=== PATIENT | male | born 1955 | race Caucasian/White ===

== ENCOUNTER → 2016-04-22 | Outpatient (REF) | payer OTHER ==
[~2016-04-22] MED LIST: /LABE20TA OR; ALLO300T OR; CATA0.2D3 TD; CRES40TA OR; FURO40TA2 OR; GLIP2.5T6 OR; METF500T4 OR; MINOXIDIL PO; SPIR50TA2 OR; TRIC145T19 OR; prednisone PO
[2016-04-22 14:08] LABS: CHOLESTEROL LEVEL 241 MG/DL (<200); TRIGLYCERIDES LEVEL 514 MG/DL (<150)
== END | disposition home or self-care (01) ==
LOC: M LAB REF 13:17
PROVIDERS: ATTEND Internal Medicine Nephrology
DX: E78.2 Mixed hyperlipidemia (principal); Z94.0 Kidney transplant status

== ENCOUNTER → 2016-04-22 | Outpatient (REF) | payer OTHER ==
[2016-04-22 14:03] LABS: CHOLESTEROL LEVEL 227 MG/DL (<200); TRIGLYCERIDES LEVEL 506 MG/DL (<150)
[2016-04-24 00:09] LABS: TISSUE TRANSGLUTAMINASE IgG <2 U/mL (0-5)
== END | disposition home or self-care (01) ==
LOC: M LAB REF 12:51
PROVIDERS: ATTEND Family Medicine
DX: E78.4 Other hyperlipidemia (principal); R14.0 Abdominal distension (gaseous); Z94.0 Kidney transplant status

== ENCOUNTER → 2016-07-31 | Outpatient (REF) | payer OTHER ==
[~2016-07-31] MED LIST changes: +ALLO15TA PO; +AMIL5TA PO; +CRES40TA PO; +FOLI5INJ2 PO; +GLIM2TAB PO; +LOSA100T36 PO; +METO200T15 PO; +MYFO180T PO; +POTA50TAB PO; +PRED5CON PO; +PROG1CAP2 PO; +ROCA0.5C PO; +TORS5TAB2 PO; +VITA100054 PO; +[UNRECOGNIZED DRUG - OTHER] PO; +[UNRECOGNIZED DRUG - OTHER] PO
[2016-07-31 13:53] LABS: CHOLESTEROL LEVEL 240 MG/DL (<200); TRIGLYCERIDES LEVEL 651 MG/DL (<150)
== END ==
LOC: M LAB REF 12:57
PROVIDERS: ATTEND Internal Medicine Nephrology
DX: Z94.0 Kidney transplant status (principal); E78.2 Mixed hyperlipidemia

== ENCOUNTER → 2016-08-04 | Outpatient (CLI) | payer OTHER ==
[~2016-08-04] VITALS: Ht 170.2 cm; Wt 95.3 kg
[~2016-08-04] MED LIST changes: +LIDOCAINE 2% INJ 100 MG/5 ML SDV (FOR ANES.) As Ordered ONE; +MIDAZOLAM INJ 2 MG/2 ML VIAL (J2250) As Ordered ONE; +NS 1,000 ML IV SCH; +PROPOFOL 200 MG/20 ML VIAL As Ordered ONE
--- NOTE | 2016-08-04 07:58 | ROOR ---
Patient Name: Donovan Morris Procedure Date: 08/04/2016 7:32 AM Date of : 1955 Age: 61 Room: [facility] Gender: Male Note Status: Finalized Procedure: Upper GI endoscopy Indications: Nausea with vomiting Providers: Jake Herr MD Referring MD: Patsy MILLER DO, Khalid P. Sindhu, MD Requesting Provider: Medicines: Monitored Anesthesia Care Complications: No immediate complications. Procedure: Pre-Anesthesia Assessment: - Prior to the procedure, a History and Physical was performed, and patient medications and allergies were reviewed. The patient is competent. The risks and benefits of the procedure and the sedation options and risks were discussed with the patient. All questions were answered and informed consent was obtained. Patient identification and proposed procedure were verified by the physician, the nurse and the anesthesiologist in the procedure room. Mental Status Examination: alert and oriented. Airway Examination: normal oropharyngeal airway and neck mobility. CV Examination: regular rate and rhythm. Prophylactic Antibiotics: The patient does not require prophylactic antibiotics. Prior Anticoagulants: The patient has taken no previous anticoagulant or antiplatelet agents. ASA Grade Assessment: III - A patient with severe systemic disease. After reviewing the risks and benefits, the patient was deemed in satisfactory condition to undergo the procedure. The anesthesia plan was to use monitored anesthesia care (MAC). Immediately prior to administration of medications, the patient was re-assessed for adequacy to receive sedatives. The heart rate, respiratory rate, oxygen saturations, blood pressure, adequacy of pulmonary ventilation, and response to care were monitored throughout the procedure. The physical status of the patient was re-assessed after the procedure. The Endoscope was introduced through the mouth, and advanced to the second part of duodenum. The upper GI endoscopy was accomplished without difficulty. The patient tolerated the procedure well. Findings: The examined esophagus was normal. Scattered and patchy moderate inflammation characterized by erosions and erythema was found in the gastric antrum. Biopsies were taken with a cold forceps for histology. The examined duodenum was normal. Impression: - Normal esophagus. - Acute gastritis. Biopsied. - Normal examined duodenum. Recommendation: - Await pathology results. - Resume previous diet. - Continue present medications. Jake Herr MD 08/04/2016 7:57:33 AM Number of Addenda: 0 Note Initiated On: 08/04/2016 7:32 AM Estimated Blood Loss: Estimated blood loss was minimal.
[2016-08-04 08:15] VITALS: BP 108/69
== END | disposition home or self-care (01) ==
LOC: M OPP 06:21
PROVIDERS: ATTEND Surgery
DX: R11.2 Nausea with vomiting, unspecified (principal); K29.70 Gastritis, unspecified, without bleeding; R00.8 Other abnormalities of heart beat; R01.1 Cardiac murmur, unspecified; I10 Essential (primary) hypertension; E78.5 Hyperlipidemia, unspecified; E11.9 Type 2 diabetes mellitus without complications; M10.9 Gout, unspecified; R19.7 Diarrhea, unspecified; R10.9 Unspecified abdominal pain; R06.02 Shortness of breath; G47.30 Sleep apnea, unspecified; E66.9 Obesity, unspecified; Z94.0 Kidney transplant status; Z88.8 Allergy status to other drugs, medicaments and biological substances; Z79.84 Long term (current) use of oral hypoglycemic drugs; Z79.52 Long term (current) use of systemic steroids; Z79.899 Other long term (current) drug therapy; Z80.41 Family history of malignant neoplasm of ovary
CPT/HCPCS: 43239; 88305; J2250

== ENCOUNTER → 2016-11-03 | Outpatient (REF) | payer OTHER ==
[~2016-11-03] MED LIST changes: +FENO1CAP2 PO; -LIDOCAINE 2% INJ 100 MG/5 ML SDV (FOR ANES.) As Ordered ONE; +METO-398 PO; -METO200T15 PO; -MIDAZOLAM INJ 2 MG/2 ML VIAL (J2250) As Ordered ONE; +MINO2.5T PO; -NS 1,000 ML IV SCH; +OMEP20TA PO; -PROPOFOL 200 MG/20 ML VIAL As Ordered ONE
== END ==
LOC: M LAB REF 13:09
PROVIDERS: ATTEND Internal Medicine Nephrology
DX: Z94.0 Kidney transplant status (principal); E78.2 Mixed hyperlipidemia

== ENCOUNTER 2017-01-26 09:07 | Day surgery (SDC) | payer OTHER ==
[~2017-01-26] VITALS: Ht 170.2 cm; Wt 94.8 kg
[~2017-01-26 09:07] MED LIST changes: +LR 1,000 ML IV ONE
[2017-01-26 10:24] LABS: CALCIUM LEVEL 9.9 MG/DL (8.8-10.2); CREATININE FOR GFR 2.28 MG/DL (0.70-1.30); GLOMERULAR FILTRATION RATE 31.2 (>49); POTASSIUM SERUM 4.7 MEQ/L (3.5-5.1)
[2017-01-26] MEDS ORDERED: BUPIVACAINE HCL 0.25% 30 ML VIAL As Ordered ONE (12:35)
[2017-01-26] MEDS ORDERED: BUPIVACAINE LIPOSOME/PF 1.3% 20 ML VIAL (13.3MG/ML)(EXPAREL) As Ordered ONE (12:40)
[2017-01-26] MEDS ORDERED: MIDAZOLAM INJ 2 MG/2 ML VIAL (J2250) As Ordered ONE (12:54)
[2017-01-26] MEDS ORDERED: fentaNYL 250 MCG/5 ML INJECTION (J3010) As Ordered ONE (12:54)
[2017-01-26] MEDS ORDERED: LIDOCAINE 2% INJ 100 MG/5 ML SDV (FOR ANES.) As Ordered ONE (13:10)
[2017-01-26] MEDS ORDERED: PROPOFOL 200 MG/20 ML VIAL As Ordered ONE ×2 (13:10→14:46)
[2017-01-26] MEDS ORDERED: ROCURONIUM BROMIDE 50 MG/5 ML VIAL/SYRINGE As Ordered ONE (13:10)
[2017-01-26] MEDS ORDERED: NEOSTIGMINE 10 MG/10 ML VIAL (J2710) As Ordered ONE ×2 (13:10→13:11)
[2017-01-26] MEDS ORDERED: METOCLOPRAMIDE INJ 10MG/2ML VIAL (J2765) As Ordered ONE (13:11)
[2017-01-26] MEDS ORDERED: GLYCOPYRROLATE INJ 0.2 MG/ML 2 ML VIAL As Ordered ONE (13:11)
[2017-01-26] MEDS ORDERED: ONDANSETRON 4MG/2ML VIAL (J2405) As Ordered ONE (13:11)
[2017-01-26] MEDS ORDERED: fentaNYL 100 MCG/2 ML INJECTION (J3010) As Ordered ONE (13:54)
[2017-01-26] MEDS ORDERED: LR 1,000 ML IV SCH (15:15)
[2017-01-26] MEDS ORDERED: NORCO, ANEXSIA 5/325MG TABLET (HYDROcodone/ACETAMINOPHEN) PO PRN (15:15)
[2017-01-26] MEDS ORDERED: ONDANSETRON 4MG/2ML VIAL (J2405) IV PRN (15:15)
[2017-01-26] MEDS ORDERED: fentaNYL 100 MCG/2 ML INJECTION (J3010) IV PRN (15:15)
[2017-01-26] MEDS: MORPHINE 2 MG/ML 1ML SYRINGE IV PRN ×2 (15:37→15:43)
[2017-01-26 17:40] VITALS: BP 138/88
--- NOTE | 2017-01-28 09:27 | RO ---
DATE OF PROCEDURE: 01/26/2017 PREOPERATIVE DIAGNOSIS: Umbilical hernia. POSTOPERATIVE DIAGNOSIS: Umbilical hernia. PROCEDURE PERFORMED: Laparoscopic repair of umbilical hernia with Parietex mesh. SURGEON: Jake Herr MD HEAD OF RESEARCH & INSIGHTS: ANESTHESIA: General. INDICATIONS FOR PROCEDURE: Patient is a 61-year-old man who developed a small umbilical hernia. This has perhaps increased slightly in size and he has some discomfort at times. He is now for a laparoscopic repair of his umbilical hernia. OPERATIVE PROCEDURE: The patient was placed under general endotracheal anesthesia. The patient's abdomen was prepped and draped in a sterile fashion. Because of a previous right lower quadrant incision for a renal transplant, the surgical approach was from the left. Local anesthesia was achieved at the level of the umbilicus laterally with 0.25% Marcaine. A small incision was made a Veress needle was inserted. After a positive hanging drop test, the abdomen was insufflated with carbon dioxide gas. A 5 mm port was placed over the 5 mm scope and advanced through the abdominal wall without difficulty. Insufflation continued and inspection occurred using the laparoscope. Examination showed remarkably no adhesions to speak of within the abdomen. A second 5 mm trocar was placed low in the left lower quadrant and a third 5 mm trocar was placed slightly higher up in the left upper quadrant. The patient was noted to have some, somewhat lobulated peritoneum and preperitoneal fat surrounding the umbilicus. Some of which would protrude through the fascial defect. This was grasped and using a Harmonic scalpel this preperitoneal fat and peritoneum was peeled away from the anterior abdominal wall surrounding the umbilicus. This was placed aside in the abdomen for later removal. Inspection identified an approximately 1.5 to perhaps 2 cm fascial defect. The abdomen was deflated and a short transverse supraumbilical incision was made. This was deepened into the subcutaneous tissues. The hernia sac was opened. A 9 cm round Parietex patch was selected. This was reference code [id number] and Lot number [id number]. This was moistened. A suture of Ethibond was placed in the fascial defect catching a small bite of the midpoint of the mesh. Before tying the suture, the mesh was reduced into the abdomen and the suture was then tied down. Several additional sutures were placed to complete closure of the fascial defect. The abdomen was then reinflated. The mass of mesh was then tacked in place using a SecureStrap tacking device. All 25 ashish were utilized and a nice approximation to the anterior abdominal wall was achieved. There was no bleeding identified. Exparel was mixed with 20 mL of Exparel and 10 mL of sterile saline. This was infiltrated through the anterior abdominal wall overlying the area of the mesh implantation guided by inspection with the laparoscope. The umbilical incision was closed with some buried Vicryl sutures and the skin edges were approximated with a running subcuticular Vicryl. The trocars were removed after deflating the abdomen, and I proceeded to close the skin incisions. Prior to completing the operation, I realized that I had failed to remove the devascularized portion of fat that had been removed off the anterior abdominal wall. A 5 mm trocar was then placed through the left upper quadrant trocar site and a reinflation of the abdomen took place. The portion of fatty tissue was tissue was readily identified. A 5 mm trocar was placed through the middle port. The fat was grasped, but it was too bulky to remove through the 5 mm port. Therefore, a 10 mm port was inserted. An Endopouch was placed and used to scoop up. The 10 mm port was removed and mouth of the sac was delivered through the incision. A Juanita clamp was used to reach within the pouch and remove the fibrofatty tissue and fragments, and the pouch was then removed. An Endoclose device was placed and the peritoneum and inner fascia were approximated with a single suture of #0 Vicryl. Once this had been placed, the abdomen was deflated through the single remaining port and this was removed. The trocar site incisions were then closed with buried Vicryl and Steri-Strips were applied to all incisions. The patient tolerated the procedure well without apparent complication. He was awakened and extubated and moved to the recovery room in stable condition.
== END 2017-01-26 17:40 | disposition home or self-care (01) ==
LOC: M SDC 09:07
PROVIDERS: ATTEND Surgery
DX: K42.9 Umbilical hernia without obstruction or gangrene (principal); I10 Essential (primary) hypertension; E11.9 Type 2 diabetes mellitus without complications; E66.9 Obesity, unspecified; E78.00 Pure hypercholesterolemia, unspecified; R11.0 Nausea; R06.83 Snoring; T88.4XXD Failed or difficult intubation, subsequent encounter; E55.9 Vitamin D deficiency, unspecified; Z88.8 Allergy status to other drugs, medicaments and biological substances; Z79.899 Other long term (current) drug therapy; Z79.52 Long term (current) use of systemic steroids; Z94.0 Kidney transplant status
CPT/HCPCS: 36415; 49652; 80048; C1781; J2250; J2405; J2710; J2765; J3010

== ENCOUNTER → 2017-02-16 | Outpatient (REF) | payer OTHER ==
[~2017-02-16] MED LIST changes: -LR 1,000 ML IV ONE
[2017-02-16 16:08] LABS: CHOLESTEROL LEVEL 227 MG/DL (<200); TRIGLYCERIDES LEVEL 508 MG/DL (<150)
== END ==
LOC: M LAB REF 13:55
PROVIDERS: ATTEND Internal Medicine Nephrology
DX: Z94.0 Kidney transplant status (principal); E78.2 Mixed hyperlipidemia

== ENCOUNTER → 2017-05-31 | Outpatient (REF) | payer OTHER ==
[2017-05-31 14:39] LABS: CHOLESTEROL LEVEL 170 MG/DL (<200); CHOLESTEROL RISK RATIO 4.722 (<5); HDL CHOLESTEROL 36 MG/DL (>40); LDL CHOLESTEROL 60.8 MG/DL (<100); NON-HDL-C 134 MG/DL; TRIGLYCERIDES LEVEL 366 MG/DL (<150)
[2017-06-02 08:40] LABS: FK 506 (TACROLIMUS) LABCORP 9.2 ng/mL (2.0-20.0)
== END ==
LOC: M LAB REF 13:26
DX: Z94.0 Kidney transplant status (principal); E78.2 Mixed hyperlipidemia
CPT/HCPCS: 80061

== ENCOUNTER → 2017-07-02 | Outpatient (CLI) | payer OTHER ==
[2017-07-02 19:00] LABS: URIC ACID 5.8 MG/DL (3.5-7.2)
[2017-07-02 19:00] LABS: RHEUMATOID FACTOR QUANT < 10.0 IU/ML (<15.0)
[2017-07-02 19:29] LABS: ERYTHROCYTE SEDIMENTATION RATE 6 mm/hr (0-20)
[2017-07-02 19:30] LABS: TOTAL 25(OH) VITAMIN D 77.2 NG/ML (30.0-100.0)
[2017-07-06 00:08] LABS: CYCLIC CITRULLINATED PEPTIDE 4 units (0-19)
[2017-07-06 00:08] LABS: ANTINUCLEAR ANTIBODIES DIRECT Negative (Negative); Lyme Disease IgG/IgM Antibodie <0.91 ISR (0.00-0.90); Lyme Disease IgM Ab Quantitati <0.80 index (0.00-0.79)
== END ==
LOC: M SMT 14:11
DX: M79.671 Pain in right foot (principal); M25.532 Pain in left wrist; M25.531 Pain in right wrist

== ENCOUNTER → 2017-07-06 | Outpatient (CLI) | payer OTHER ==
[2017-07-06 19:05] LABS: FREE T4 0.96 NG/DL (0.76-1.46)
[2017-07-06 19:05] LABS: THYROID STIMULATING HORMONE 0.932 uIU/ML (0.358-3.740)
[2017-07-06 19:15] LABS: FOLATE > 24.0 NG/ML (>5.4); VITAMIN B12 LEVEL 340 PG/ML (247-911)
== END ==
LOC: M SMT 14:51
DX: R20.2 Paresthesia of skin (principal); R41.3 Other amnesia; Z11.3 Encounter for screening for infections with a predominantly sexual mode of transmission
CPT/HCPCS: 82746

== ENCOUNTER → 2017-09-01 | Outpatient (REF) | payer OTHER ==
[2017-09-04 00:12] LABS: FK 506 (TACROLIMUS) LABCORP 9.2 ng/mL (2.0-20.0)
== END ==
LOC: M LAB REF 12:54
DX: Z94.0 Kidney transplant status (principal)

== ENCOUNTER → 2017-12-08 | Outpatient (REF) | payer OTHER ==
[2017-12-11 00:06] LABS: FK 506 (TACROLIMUS) LABCORP 7.4 ng/mL (2.0-20.0)
== END ==
LOC: M LAB REF 13:17
DX: Z94.0 Kidney transplant status (principal)

== ENCOUNTER → 2018-03-28 | Outpatient (REF) | payer OTHER ==
[~2018-03-28] MED LIST changes: -AMIL5TA PO; +AMIL5TAB4 PO; -LOSA100T36 PO; +LOSA100T50 PO; -METO-398 PO; +METO200T28 PO
[2018-03-28 14:02] LABS: CHOLESTEROL LEVEL 215 MG/DL (<200); CHOLESTEROL RISK RATIO 4.479 (<5); HDL CHOLESTEROL 48 MG/DL (>40); NON-HDL-C 167 MG/DL; TRIGLYCERIDES LEVEL 523 MG/DL (<150)
== END ==
LOC: M LAB REF 13:03
PROVIDERS: ATTEND Internal Medicine Nephrology
DX: E78.2 Mixed hyperlipidemia (principal); Z94.0 Kidney transplant status

== ENCOUNTER → 2018-03-28 | Outpatient (CLI) | payer OTHER ==
[2018-03-30 14:58] LABS: Methylmalonic Acid 186 nmol/L (0-378)
== END ==
LOC: M SMT 10:16
PROVIDERS: ATTEND Psychiatry & Neurology Neurology
DX: E53.8 Deficiency of other specified B group vitamins (principal)

== ENCOUNTER → 2018-07-06 | Outpatient (REF) | payer OTHER ==
[~2018-07-06] MED LIST changes: -/LABE20TA OR; -ALLO15TA PO; +ALLO300T2 PO; +FENO135C6 PO; -FENO1CAP2 PO; +LABE1TAB11 OR
[2018-07-06 15:07] LABS: CHOLESTEROL LEVEL 219 MG/DL (<200); HDL CHOLESTEROL 46 MG/DL (>40); NON-HDL-C 173 MG/DL; TRIGLYCERIDES LEVEL 571 MG/DL (<150)
== END ==
LOC: M LAB REF 13:26
PROVIDERS: ATTEND Internal Medicine Nephrology
DX: E78.2 Mixed hyperlipidemia (principal); Z94.0 Kidney transplant status

== ENCOUNTER → 2018-08-12 | Outpatient (REF) | payer OTHER ==
[2018-08-12 19:11] LABS: CREATININE FOR GFR 2.5 MG/DL (0.70-1.30); GLOMERULAR FILTRATION RATE 27.9 (>49)
== END ==
LOC: M LABDRAW1 16:36
PROVIDERS: ATTEND Physical Medicine & Rehabilitation
DX: E11.9 Type 2 diabetes mellitus without complications (principal)

== ENCOUNTER → 2018-10-06 | Outpatient (REF) | payer OTHER | LOC: M LAB REF 13:16 | PROVIDERS: ATTEND Internal Medicine Nephrology | DX: Z94.0 Kidney transplant status (principal) ==

== ENCOUNTER → 2018-10-14 | Outpatient (CLI) | payer OTHER ==
[~2018-10-14] MED LIST changes: +B-122500 PO; -GLIM2TAB PO; +GLIM2TAB4 PO; +GLIM4TAB5; +GLIM4TAB5 PO; +GLIP2.5T6 PO; +METO100T5 PO; +METO1TAB33 PO; +OMEP-358 PO; -OMEP20TA PO; +ZYLO300T6
[2018-10-14 18:02] LABS: BASO # 0.1 10^3/uL (0.0-0.2); BASO % 0.9 % (0.0-1.0); EOS # 0.1 10^3/uL (0.0-0.50); EOS % 0.7 % (0.0-3.0); HEMATOCRIT 46.1 % (42.0-52.0); HEMOGLOBIN 15.6 g/dl (13.5-17.5); LYMPH # 0.3 10^3/uL (1.5-4.5); MEAN CORPUSCULAR HEMOGLOBIN 29.1 pg (27.0-33.0); MEAN CORPUSCULAR HGB CONC 33.8 g/dl (32.0-36.5); MEAN CORPUSCULAR VOLUME 85.8 fl (80.0-96.0); MONO # 0.5 10^3/uL (0.0-0.8); MONO % 6.1 % (0.0-5.0); NEUTROPHILS # 7.2 10^3/uL (1.8-7.7); NEUTROPHILS % 87.4 % (36.0-66.0); PLATELET COUNT, AUTOMATED 246 10^3/uL (150-450); RED BLOOD COUNT 5.37 10^6/uL (4.30-6.10); WHITE BLOOD COUNT 8.2 10^3/uL (4.0-10.0)
[2018-10-14 18:14] LABS: ALBUMIN 4.2 GM/DL (3.2-5.2); ALT/SGPT 22 U/L (12-78); BILIRUBIN,TOTAL 0.6 MG/DL (0.2-1.0); BLOOD UREA NITROGEN 41 MG/DL (7-18); CALCIUM LEVEL 9.5 MG/DL (8.8-10.2); CARBON DIOXIDE LEVEL 25 MEQ/L (21-32); CHLORIDE LEVEL 98 MEQ/L (98-107); CREATININE FOR GFR 2.32 MG/DL (0.70-1.30); FOLATE > 24.0 NG/ML (>5.4); GLOMERULAR FILTRATION RATE 30.4 (>49); GLUCOSE, FASTING 120 MG/DL (70-100); POTASSIUM SERUM 4.6 MEQ/L (3.5-5.1); RHEUMATOID FACTOR QUANT < 10.0 IU/ML (<15.0); SODIUM LEVEL 132 MEQ/L (136-145); THYROID STIMULATING HORMONE 0.849 uIU/ML (0.358-3.740); TOTAL PROTEIN 7.1 GM/DL (6.4-8.2); VITAMIN B12 LEVEL 1335 PG/ML (247-911)
[2018-10-14 19:10] LABS: ERYTHROCYTE SEDIMENTATION RATE 11 mm/hr (0-20)
[2018-10-14 19:31] LABS: HEMOGLOBIN A1c 7.6 %
[2018-10-18 10:28] LABS: DRVV SCREEN 41.7 SEC
[2018-10-18 14:02] LABS: ALBUMIN % 66.2 % (55.8-66.1); ALPHA-1-GLOBULIN % 5.2 % (2.9-4.9); ALPHA-1-GLOBULINS 0.37 GM/DL (0.17-0.41); ALPHA-2-GLOBULINS 0.81 GM/DL (0.42-0.99); ALPHA-2-GLOBULINS % 11.4 % (7.1-11.8); BETA-1-GLOBULINS % 6.9 % (4.7-7.2); BETA-2-GLOBULINS % 3.9 % (3.2-6.5); GAMMA GLOBULIN % 6.4 % (11.1-18.8)
[2018-10-18 14:03] LABS: BETA-1-GLOBULINS 0.49 GM/DL (0.28-0.60); BETA-2-GLOBULINS 0.28 GM/DL (0.19-0.55); GAMMA GLOBULINS 0.45 GM/DL (0.65-1.58)
[2018-10-20 00:14] LABS: ANCA-ATYPICAL <1:20 titer (Neg:<1:20); ANTI DS-DNA AB <1:10 titer (.); ANTINUCLEAR ANTIBODIES DIRECT Negative (Negative); CERULOPLASMIN 22.3 mg/dL (16.0-31.0); COPPER PLASMA 103 ug/dL (72-166); CYTOPLASMIC NEUTROP AB ANCA-C <1:20 titer (Neg:<1:20); LEAD BLOOD ADULT 1 ug/dL (0-4); Lyme Disease IgG/IgM Antibodie <0.91 ISR (0.00-0.90); Lyme Disease IgM Ab Quantitati <0.80 index (0.00-0.79); MERCURY LEVEL 2.6 ug/L (0.0-14.9); PERINUCLEAR AB ANCA-P <1:20 titer (Neg:<1:20); SJOGREN'S ANTI SS-A <0.2 AI (0.0-0.9); SJOGREN'S ANTI SS-B <0.2 AI (0.0-0.9); VITAMIN B1 LEVEL WHOLE BLOOD 181.6 nmol/L (66.5-200.0); VITAMIN B6,PYRIDOXAL PHOSPHATE 6.2 ug/L (5.3-46.7); VITAMIN E(ALPHA TOCOPHEROL) 20.3 mg/L (9.0-29.0); VITAMIN E(GAMMA TOCOPHEROL) 2.5 mg/L (0.5-4.9)
== END ==
LOC: M SMT 13:30
PROVIDERS: ATTEND Psychiatry & Neurology Neurology
DX: G62.9 Polyneuropathy, unspecified (principal); E11.22 Type 2 diabetes mellitus with diabetic chronic kidney disease; Z12.5 Encounter for screening for malignant neoplasm of prostate

== ENCOUNTER → 2018-10-14 | Outpatient (CLI) | payer OTHER ==
[2018-10-18 14:07] LABS: PSA TOTAL 0.7 ng/mL (0.0-4.0)
== END ==
LOC: M SMT 13:36
PROVIDERS: ATTEND Physician Assistant
DX: E11.22 Type 2 diabetes mellitus with diabetic chronic kidney disease (principal); Z12.5 Encounter for screening for malignant neoplasm of prostate

== ENCOUNTER → 2018-12-22 | Outpatient (CLI) | payer OTHER ==
[~2018-12-22] MED LIST changes: -B-122500 PO; +GLIM2TAB2 PO; -GLIM2TAB4 PO; -GLIM4TAB5; -GLIM4TAB5 PO; -GLIP2.5T6 PO; -METO100T5 PO; -METO1TAB33 PO; -ZYLO300T6
--- NOTE | 2018-12-22 12:19 | REP ---
WHOLE BODY BONE SCAN: Following the intravenous administration of 22 millicuries of technetium 99m MDP, patient's body is imaged in the anterior and posterior projections. Additional oblique and lateral views are obtained. There is scattered arthritic uptake in the lower posterior cervical facets and diffusely in the thoracic spine region. There is mild arthritic uptake at the patellofemoral joints bilaterally as well as the bilateral tarsal regions. There is no compelling scintigraphic evidence of osseous metastases. There is a transplant kidney in the right pelvis. Bladder activity is noted. IMPRESSION: Scattered arthritic uptake in the lower cervical and diffusely throughout the thoracic spine. There is also some mild arthritic uptake at the patellofemoral joints and bilateral tarsal regions. Electronically Signed by Grayson Zelaya MD 12/23/2018 09:20 A
== END ==
LOC: M RAD 07:55
PROVIDERS: ATTEND Physical Medicine & Rehabilitation
DX: M47.22 Other spondylosis with radiculopathy, cervical region (principal); M47.812 Spondylosis without myelopathy or radiculopathy, cervical region
CPT/HCPCS: 78306; A9503

== ENCOUNTER → 2019-01-13 | Outpatient (CLI) | payer OTHER ==
[2019-01-13 08:35] LABS: BASO % 0.6 % (0.0-1.0); EOS # 0.1 10^3/uL (0.0-0.5); EOS % 1.2 % (0.0-3.0); HEMATOCRIT 40.2 % (42.0-52.0); HEMOGLOBIN 13.4 g/dl (13.5-17.5); LYMPH # 0.5 10^3/uL (1.5-5.0); LYMPH % 7.4 % (24.0-44.0); MEAN CORPUSCULAR HEMOGLOBIN 28.5 pg (27.0-33.0); MEAN CORPUSCULAR HGB CONC 33.3 g/dl (32.0-36.5); MEAN CORPUSCULAR VOLUME 85.4 fl (80.0-96.0); MONO # 0.6 10^3/uL (0.0-0.8); MONO % 8.7 % (0.0-5.0); NEUTROPHILS # 5.4 10^3/uL (1.5-8.5); NEUTROPHILS % 80.9 % (36.0-66.0); PLATELET COUNT, AUTOMATED 222 10^3/uL (150-450); RED BLOOD COUNT 4.71 10^6/uL (4.30-6.10); WHITE BLOOD COUNT 6.7 10^3/uL (4.0-10.0)
[2019-01-13 09:06] LABS: BILIRUBIN,TOTAL 0.5 MG/DL (0.2-1.0); CHOLESTEROL RISK RATIO 3.275 (<5); CREATININE FOR GFR 3.28 MG/DL (0.70-1.30); GLOMERULAR FILTRATION RATE 20.4 (>49); POTASSIUM SERUM 4.5 MEQ/L (3.5-5.1); TOTAL PROTEIN 6.9 GM/DL (6.4-8.2)
--- NOTE | 2019-01-13 09:09 | REP ---
Clinical: Nausea and vomiting. Technique: Axial noncontrast images from the lung bases to the pubic symphysis with coronal and sagittal re-formations. Comparison: 02/21/2013. Findings: Liver, spleen, pancreas, gallbladder, and bilateral adrenal glands are normal / stable. Incidental small subcentimeter left adrenal adenoma unchanged. Bilateral lac vieux kidneys are atrophic and a left renal hypodensity measuring approximately 1 cm remains stable and may represent small complex cyst. Transplant kidney in the right lower quadrant appears relatively normal and without hydronephrosis or perinephric stranding. The enteric system is without obstruction or acute inflammatory process. Normal terminal ileum and appendix identified in the right lower quadrant. Pelvis demonstrates normal bladder and age appropriate prostate/seminal vesicles. Atherosclerotic changes to the aorta and vasculature noted without aneurysm. No ascites. No free air. No adenopathy. Musculoskeletal structures without focal abnormality. Lung bases are clear. Impression: 1. Atrophic lac vieux kidneys with the left renal hypodense lesions similar to prior examination possibly complex cyst and less likely significant pathology. Consider ultrasound follow-up for confirmation. 2. Relatively normal transplant kidney in the right lower quadrant. 3. No further acute abdominopelvic pathology appreciated. No ascites. No adenopathy. No focal inflammatory stranding. Electronically Signed by Mushtaq Sun MD 01/13/2019 09:00 A
[2019-01-13 09:12] LABS: TOTAL 25(OH) VITAMIN D 77.4 NG/ML (30.0-100.0)
[2019-01-13 09:57] LABS: HEMOGLOBIN A1c 7.4 %
== END ==
LOC: M RAD 07:36
PROVIDERS: ATTEND Family Medicine
DX: R11.2 Nausea with vomiting, unspecified (principal)

== ENCOUNTER 2019-01-20 07:22 | Emergency (ER) | payer OTHER ==
[~2019-01-20] VITALS: Ht 170.2 cm; Wt 84.1 kg
[2019-01-20] MEDS ORDERED: B-122500 PO (07:41)
[2019-01-20 08:26] LABS: HEMATOCRIT 40.8 % (42.0-52.0); HEMOGLOBIN 13.8 g/dl (13.5-17.5); MEAN CORPUSCULAR HEMOGLOBIN 28.5 pg (27.0-33.0); MEAN CORPUSCULAR HGB CONC 33.8 g/dl (32.0-36.5); MEAN CORPUSCULAR VOLUME 84.3 fl (80.0-96.0); PLATELET COUNT, AUTOMATED 212 10^3/uL (150-450); RED BLOOD COUNT 4.84 10^6/uL (4.30-6.10); WHITE BLOOD COUNT 6.4 10^3/uL (4.0-10.0)
[2019-01-20 08:51] LABS: ALBUMIN 3.7 GM/DL (3.2-5.2); BILIRUBIN,DIRECT 0.1 MG/DL (0.0-0.2); BILIRUBIN,TOTAL 0.5 MG/DL (0.2-1.0); CALCIUM LEVEL 9.1 MG/DL (8.8-10.2); CREATININE FOR GFR 2.91 MG/DL (0.70-1.30); GLOMERULAR FILTRATION RATE 23.4 (>49); MAGNESIUM LEVEL 1.7 MG/DL (1.8-2.4); TOTAL PROTEIN 6.4 GM/DL (6.4-8.2)
[2019-01-20] MEDS ORDERED: MAGNESIUM CHLORIDE 64 MG TABCR (SLO MAG) PO SCH (09:00)
[2019-01-20] MEDS ORDERED: GLIM4TAB3 (09:41)
[2019-01-20] MEDS ORDERED: ZYLO300T6 (09:41)
[2019-01-20] MEDS ORDERED: METO1TAB33 PO ×2 (09:41)
[2019-01-20] MEDS ORDERED: METO100T5 PO (09:42)
[2019-01-20] MEDS ORDERED: GLIM4TAB3 PO ×2 (10:03→10:15)
[2019-01-20 10:32] VITALS: BP 115/73
== END 2019-01-20 10:46 | disposition home or self-care (01) ==
LOC: M ED 07:22
DX: E11.649 Type 2 diabetes mellitus with hypoglycemia without coma (principal); I12.9 Hypertensive chronic kidney disease with stage 1 through stage 4 chronic kidney disease, or unspecified chronic kidney disease; E78.5 Hyperlipidemia, unspecified; K21.9 Gastro-esophageal reflux disease without esophagitis; N18.4 Chronic kidney disease, stage 4 (severe); Z94.0 Kidney transplant status; Z79.899 Other long term (current) drug therapy

== ENCOUNTER → 2019-01-23 | Outpatient (CLI) | payer OTHER ==
[~2019-01-23] MED LIST changes: +B-122500 PO; +GLIM4TAB3; +GLIM4TAB3 PO; +METO100T5 PO; +METO1TAB33 PO; +ZYLO300T6
--- NOTE | 2019-01-24 06:33 | REP ---
Clinical: Renal cyst. Technique: Real time lópez scale ultrasound examination using curved array transducer. Findings: Right kidney measures 7.4 x 3.0 x 4.0 cm and is normal in reniform shape with increased echotexture and central sinus fat suggesting chronic medical renal disease. No hydronephrosis. Few scattered simple cysts are identified measuring up to 11 mm. No nephrolithiasis or mass lesion. Left kidney measures 7.6 x 4.0 x 2.7 cm and is normal in reniform shape with increased echotexture and central sinus fat suggesting chronic medical renal disease. No hydronephrosis. Few scattered simple cysts are identified measuring up to 17 mm. No nephrolithiasis or mass lesion. Bladder is unremarkable. Transplant kidney not evaluated. Impression: Few scattered bilateral simple appearing renal cysts. Electronically Signed by Mushtaq Sun MD 01/24/2019 06:24 A
== END ==
LOC: M RAD 13:13
PROVIDERS: ATTEND Family Medicine
DX: N28.1 Cyst of kidney, acquired (principal)

== ENCOUNTER → 2019-01-23 | Outpatient (REF) | payer OTHER ==
[2019-01-23 14:31] LABS: CHOLESTEROL RISK RATIO 3.033 (<5)
== END ==
LOC: M LAB REF 13:39
PROVIDERS: ATTEND Internal Medicine Nephrology
DX: Z94.0 Kidney transplant status (principal); E78.2 Mixed hyperlipidemia; N28.1 Cyst of kidney, acquired

== ENCOUNTER → 2019-02-17 | Outpatient (REF) | payer OTHER | LOC: M LAB REF 13:31 | PROVIDERS: ATTEND Internal Medicine Nephrology | DX: Z94.0 Kidney transplant status (principal) ==

== ENCOUNTER → 2019-03-23 | Outpatient (REF) | payer OTHER ==
[~2019-03-23] MED LIST changes: +GLIP2.5T6 PO
[2019-03-23 14:26] LABS: ALBUMIN 3.9 GM/DL (3.2-5.2); CALCIUM LEVEL 9.3 MG/DL (8.8-10.2); CHOLESTEROL RISK RATIO 3.456 (<5); CREATININE FOR GFR 2.39 MG/DL (0.70-1.30); GLOMERULAR FILTRATION RATE 29.3 (>49); PHOSPHORUS LEVEL 2.4 MG/DL (2.5-4.9); POTASSIUM SERUM 4.1 MEQ/L (3.5-5.1)
== END ==
LOC: M LAB REF 13:56
PROVIDERS: ATTEND Internal Medicine Nephrology
DX: Z94.0 Kidney transplant status (principal); E78.2 Mixed hyperlipidemia; M10.9 Gout, unspecified

== ENCOUNTER 2019-03-28 09:56 | Day surgery (SDC) | payer OTHER ==
[~2019-03-28] VITALS: Ht 170.2 cm; Wt 82.6 kg
[~2019-03-28 09:56] MED LIST changes: -GLIM2TAB2 PO; +GLIM2TAB4 PO; -GLIM4TAB3; -GLIM4TAB3 PO; +GLIM4TAB5; +GLIM4TAB5 PO; +LIDOCAINE 2% INJ 100 MG/5 ML SDV (FOR ANES.) As Ordered ONE; +LR 1,000 ML IV SCH; +MEPERIDINE INJ 25 MG/ML VIAL (J2175) IV PRN; +METOCLOPRAMIDE INJ 10MG/2ML VIAL (J2765) IV PRN; +NS 1,000 ML IV ONE; +ONDANSETRON 4MG/2ML VIAL (J2405) IV PRN; +PERCOCET 5MG/325MG TAB PO PRN; +fentaNYL 100 MCG/2 ML INJECTION (J3010) IV PRN; +propofoL 200 MG/20 ML VIAL As Ordered ONE
[2019-03-28] MEDS ORDERED: propofoL 200 MG/20 ML VIAL As Ordered ONE ×2 (12:08→12:27)
--- NOTE | 2019-03-28 12:58 | ROOR ---
Patient Name: Donovan Morris Procedure Date: 03/28/2019 11:47 AM Date of : 1955 Age: 64 Room: [facility] Gender: Male Note Status: Finalized Procedure: Upper GI endoscopy Indications: Nausea, Weight loss Providers: Jake Herr MD Referring MD: Patsy MILLER DO Requesting Provider: Medicines: Monitored Anesthesia Care Complications: No immediate complications. Procedure: Pre-Anesthesia Assessment: - Prior to the procedure, a History and Physical was performed, and patient medications and allergies were reviewed. The patient is competent. The risks and benefits of the procedure and the sedation options and risks were discussed with the patient. All questions were answered and informed consent was obtained. Patient identification and proposed procedure were verified by the physician, the nurse and the anesthesiologist in the procedure room. Mental Status Examination: alert and oriented. CV Examination: regular rate and rhythm. ASA Grade Assessment: III - A patient with severe systemic disease. After reviewing the risks and benefits, the patient was deemed in satisfactory condition to undergo the procedure. The anesthesia plan was to use monitored anesthesia care (MAC). Immediately prior to administration of medications, the patient was re-assessed for adequacy to receive sedatives. The heart rate, respiratory rate, oxygen saturations, blood pressure, adequacy of pulmonary ventilation, and response to care were monitored throughout the procedure. The physical status of the patient was re-assessed after the procedure. The Endoscope was introduced through the mouth, and advanced to the second part of duodenum. The upper GI endoscopy was accomplished without difficulty. The patient tolerated the procedure well. Findings: The examined esophagus was normal. The Z-line was regular. The entire examined stomach was normal. The first portion of the duodenum and second portion of the duodenum were normal. Impression: - Normal esophagus. - Z-line regular. - Normal stomach. - Normal first portion of the duodenum and second portion of the duodenum. - No specimens collected. Recommendation: - Discharge patient to home. - Resume previous diet. - Continue present medications. Jake Herr MD Jake Herr MD 03/28/2019 12:57:33 PM Electronically signed by Jake Herr MD Number of Addenda: 0 Note Initiated On: 03/28/2019 11:47 AM Estimated Blood Loss: Estimated blood loss: none.
--- NOTE | 2019-03-28 13:03 | ROOR ---
Patient Name: Donovan Morris Procedure Date: 03/28/2019 11:48 AM Date of : 1955 Age: 64 Room: [facility] Gender: Male Note Status: Finalized Procedure: Colonoscopy Indications: Chronic diarrhea, Weight loss Providers: Jake Herr MD Referring MD: Patsy MILLER DO Requesting Provider: Medicines: Monitored Anesthesia Care Complications: No immediate complications. Procedure: Pre-Anesthesia Assessment: - Prior to the procedure, a History and Physical was performed, and patient medications and allergies were reviewed. The patient is competent. The risks and benefits of the procedure and the sedation options and risks were discussed with the patient. All questions were answered and informed consent was obtained. Patient identification and proposed procedure were verified by the physician, the nurse and the anesthesiologist in the procedure room. Mental Status Examination: alert and oriented. ASA Grade Assessment: III - A patient with severe systemic disease. After reviewing the risks and benefits, the patient was deemed in satisfactory condition to undergo the procedure. The anesthesia plan was to use monitored anesthesia care (MAC). Immediately prior to administration of medications, the patient was re-assessed for adequacy to receive sedatives. The heart rate, respiratory rate, oxygen saturations, blood pressure, adequacy of pulmonary ventilation, and response to care were monitored throughout the procedure. The physical status of the patient was re-assessed after the procedure. The Colonoscope was introduced through the anus and advanced to the cecum, identified by appendiceal orifice and ileocecal valve. The colonoscopy was somewhat difficult due to significant looping. Successful completion of the procedure was aided by withdrawing and reinserting the scope. The patient tolerated the procedure well. The quality of the bowel preparation was good. Findings: Hemorrhoids were found on perianal exam. The digital rectal exam was normal. A 5 mm polyp was found in the cecum. The polyp was sessile. The polyp was removed with a hot snare. Resection and retrieval were complete. Normal mucosa was found in the entire colon. Biopsies for histology were taken with a cold forceps from the entire colon for evaluation of microscopic colitis. Estimated blood loss was minimal. Impression: - Hemorrhoids found on perianal exam. - One 5 mm polyp in the cecum, removed with a hot snare. Resected and retrieved. - Normal mucosa in the entire examined colon. Biopsied. Recommendation: - Discharge patient to home. - Resume previous diet. - Continue present medications. - Await pathology results. Jake Herr MD Jake Herr MD 03/28/2019 1:02:43 PM Electronically signed by Jake Herr MD Number of Addenda: 0 Note Initiated On: 03/28/2019 11:48 AM Estimated Blood Loss: Estimated blood loss was minimal.
[2019-03-28 13:10] VITALS: BP 143/83
== END 2019-03-28 13:23 | disposition home or self-care (01) ==
LOC: M OPP 09:56
PROVIDERS: ATTEND Surgery
DX: K64.9 Unspecified hemorrhoids (principal); D12.0 Benign neoplasm of cecum; K52.9 Noninfective gastroenteritis and colitis, unspecified; R63.4 Abnormal weight loss; R11.0 Nausea; Z79.899 Other long term (current) drug therapy; Z94.0 Kidney transplant status; Z87.891 Personal history of nicotine dependence

== ENCOUNTER → 2019-06-26 | Outpatient (REF) | payer OTHER ==
[~2019-06-26] MED LIST changes: -LIDOCAINE 2% INJ 100 MG/5 ML SDV (FOR ANES.) As Ordered ONE; -LR 1,000 ML IV SCH; -MEPERIDINE INJ 25 MG/ML VIAL (J2175) IV PRN; -METOCLOPRAMIDE INJ 10MG/2ML VIAL (J2765) IV PRN; -NS 1,000 ML IV ONE; -ONDANSETRON 4MG/2ML VIAL (J2405) IV PRN; -PERCOCET 5MG/325MG TAB PO PRN; +PROG1CAP11 PO; -PROG1CAP2 PO; -fentaNYL 100 MCG/2 ML INJECTION (J3010) IV PRN; -propofoL 200 MG/20 ML VIAL As Ordered ONE
== END ==
LOC: M LAB REF 13:16
PROVIDERS: ATTEND Internal Medicine Nephrology
DX: Z94.0 Kidney transplant status (principal)

== ENCOUNTER → 2019-08-14 | Outpatient (REF) | payer OTHER ==
[2019-08-14 17:57] LABS: CHOLESTEROL RISK RATIO 2.563 (<5)
== END ==
LOC: M LAB REF 17:18
PROVIDERS: ATTEND Internal Medicine Nephrology
DX: Z94.0 Kidney transplant status (principal); E78.2 Mixed hyperlipidemia

== ENCOUNTER → 2019-11-28 | Outpatient (REF) | payer OTHER | LOC: M LAB REF 17:09 | PROVIDERS: ATTEND Internal Medicine Nephrology | DX: Z94.0 Kidney transplant status (principal) ==

== ENCOUNTER → 2020-04-15 | Outpatient (REF) | payer OTHER | LOC: M LAB REF 16:45 | PROVIDERS: ATTEND Internal Medicine Nephrology | DX: Z94.0 Kidney transplant status (principal) ==

== ENCOUNTER → 2020-07-17 | Outpatient (REF) | payer OTHER | LOC: M LAB REF 17:06 | PROVIDERS: ATTEND Internal Medicine Nephrology | DX: Z94.0 Kidney transplant status (principal) ==

== ENCOUNTER → 2020-07-17 | Outpatient (REF) | payer OTHER ==
[2020-07-17 18:43] LABS: FREE T4 1.13 NG/DL (0.76-1.46); THYROID STIMULATING HORMONE 0.725 uIU/ML (0.358-3.740)
== END ==
LOC: M LAB REF 17:08
PROVIDERS: ATTEND Family Medicine
DX: E78.2 Mixed hyperlipidemia (principal)

== ENCOUNTER → 2020-09-27 | Outpatient (REF) | payer OTHER ==
[2020-09-27 13:06] LABS: HEMOGLOBIN A1c 6.9 %
[2020-09-30 14:08] LABS: PSA TOTAL 0.8 ng/mL (0.0-4.0)
== END ==
LOC: M LABDRWAD 11:12
PROVIDERS: ATTEND Physician Assistant
DX: E11.22 Type 2 diabetes mellitus with diabetic chronic kidney disease (principal); Z12.5 Encounter for screening for malignant neoplasm of prostate

== ENCOUNTER → 2020-10-22 | Outpatient (REF) | payer OTHER | LOC: M LAB REF 12:58 | PROVIDERS: ATTEND Internal Medicine Nephrology | DX: Z94.0 Kidney transplant status (principal) ==

== ENCOUNTER → 2021-03-26 | Outpatient (REF) | payer OTHER ==
[~2021-03-26] MED LIST changes: +LOSA100T45 PO; -LOSA100T50 PO
[2021-03-26 12:51] LABS: HEMATOCRIT 44.5 % (42.0-52.0); HEMOGLOBIN 15.1 g/dl (13.5-17.5); MEAN CORPUSCULAR HEMOGLOBIN 29.5 pg (27.0-33.0); MEAN CORPUSCULAR HGB CONC 33.9 g/dl (32.0-36.5); MEAN CORPUSCULAR VOLUME 87.1 fl (80.0-96.0); PLATELET COUNT, AUTOMATED 200 10^3/uL (150-450); RED BLOOD COUNT 5.11 10^6/uL (4.30-6.10); WHITE BLOOD COUNT 5.7 10^3/uL (4.0-10.0)
[2021-03-26 12:53] LABS: APPEARANCE, URINE CLEAR (CLEAR); BACTERIA, URINE AUTO NEGATIVE (NEGATIVE); BILIRUBIN, URINE AUTO NEGATIVE (NEGATIVE); BLOOD, URINE BLOOD 1+ (NEGATIVE); COLOR, URINE STRAW (YELLOW); GLUCOSE, URINE (UA) AUTO 1+ mg/dL (NEGATIVE); KETONE, URINE AUTO NEGATIVE (NEGATIVE); LEUKOCYTE ESTERASE, URINE AUTO NEGATIVE (NEGATIVE); NITRITE, URINE AUTO NEGATIVE (NEGATIVE); PROTEIN, URINE AUTO NEGATIVE (NEGATIVE); RBC, URINE AUTO 1 /HPF (0-3); SPECIFIC GRAVITY URINE AUTO 1.008 (1.002-1.035); SQUAMOUS EPITHELIAL CELL UR AU 0 /HPF (0-6); UROBILINOGEN, URINE AUTO 0.2 mg/dL (0.0-2.0); WBC, URINE AUTO 0 /HPF (0-3)
[2021-03-26 13:40] LABS: ALBUMIN 3.9 GM/DL (3.2-5.2); BILIRUBIN,DIRECT 0.1 MG/DL (0.0-0.2); BILIRUBIN,TOTAL 0.6 MG/DL (0.2-1.0); CALCIUM LEVEL 9.2 MG/DL (8.8-10.2); CREATININE FOR GFR 1.61 MG/DL (0.70-1.30); GLOMERULAR FILTRATION RATE 45.9 (>49); PHOSPHORUS LEVEL 2.3 MG/DL (2.5-4.9); POTASSIUM SERUM 3.6 MEQ/L (3.5-5.1); TOTAL PROTEIN 6.7 GM/DL (6.4-8.2); URIC ACID 6.1 MG/DL (3.5-7.2)
[2021-03-26 13:49] LABS: PTH INTACT 101.1 PG/ML (18.5-88.0)
[2021-03-26 14:21] LABS: HEMOGLOBIN A1c 7.4 %
== END ==
LOC: M LABDRWAD 12:21
PROVIDERS: ATTEND Internal Medicine Nephrology
DX: Z94.0 Kidney transplant status (principal); M10.9 Gout, unspecified; N25.81 Secondary hyperparathyroidism of renal origin; R94.5 Abnormal results of liver function studies; E11.22 Type 2 diabetes mellitus with diabetic chronic kidney disease

== ENCOUNTER → 2021-06-24 | Outpatient (REF) | payer OTHER ==
[2021-06-24 16:43] LABS: BASO # 0.1 10^3/uL (0.0-0.2); BASO % 1.1 % (0.0-1.0); EOS # 0.1 10^3/uL (0.0-0.5); EOS % 1.3 % (0.0-3.0); HEMATOCRIT 48.3 % (42.0-52.0); HEMOGLOBIN 16.1 g/dl (13.5-17.5); LYMPH # 0.5 10^3/uL (1.5-5.0); LYMPH % 8.5 % (24.0-44.0); MEAN CORPUSCULAR HEMOGLOBIN 29.2 pg (27.0-33.0); MEAN CORPUSCULAR HGB CONC 33.3 g/dl (32.0-36.5); MEAN CORPUSCULAR VOLUME 87.5 fl (80.0-96.0); MONO # 0.5 10^3/uL (0.0-0.8); MONO % 8.5 % (2.0-8.0); PLATELET COUNT, AUTOMATED 201 10^3/uL (150-450); RED BLOOD COUNT 5.52 10^6/uL (4.30-6.10); WHITE BLOOD COUNT 6.2 10^3/uL (4.0-10.0)
[2021-06-24 17:45] LABS: CREATININE, URINE 17.5 MG/DL; MALB URINE SIEMENS 33.5 MG/L; MAU/CREAT RATIO 191.4 MCG/MG (0.0-30.0)
[2021-06-24 18:23] LABS: ALT/SGPT 26 U/L (12-78); BILIRUBIN,TOTAL 0.6 MG/DL (0.2-1.0); BLOOD UREA NITROGEN 32 MG/DL (7-18); CALCIUM LEVEL 9.8 MG/DL (8.8-10.2); CARBON DIOXIDE LEVEL 26 MEQ/L (21-32); CHLORIDE LEVEL 103 MEQ/L (98-107); CREATININE FOR GFR 1.87 MG/DL (0.70-1.30); GLOMERULAR FILTRATION RATE 38.6 (>49); GLUCOSE, FASTING 173 MG/DL (70-100); POTASSIUM SERUM 4.4 MEQ/L (3.5-5.1); SODIUM LEVEL 137 MEQ/L (136-145)
[2021-06-24 18:24] LABS: ALBUMIN 4.2 GM/DL (3.2-5.2); CHOLESTEROL LEVEL 234 MG/DL (<200); CHOLESTEROL RISK RATIO 4.588 (<5); FREE T4 0.97 NG/DL (0.76-1.46); HDL CHOLESTEROL 51 MG/DL (>40); NON-HDL-C 183 MG/DL; THYROID STIMULATING HORMONE 0.801 uIU/ML (0.358-3.740); TOTAL PROTEIN 6.6 GM/DL (6.4-8.2); TRIGLYCERIDES LEVEL 441 MG/DL (<150)
[2021-06-24 19:01] LABS: HEMOGLOBIN A1c 7.4 %
[2021-06-25 11:01] LABS: TOTAL 25(OH) VITAMIN D 79.8 NG/ML (30.0-100.0)
== END ==
LOC: M LABDRWAD 16:27
PROVIDERS: ATTEND Nurse Practitioner Adult Health
DX: E11.22 Type 2 diabetes mellitus with diabetic chronic kidney disease (principal)

== ENCOUNTER → 2021-07-16 | Outpatient (CLI) | payer OTHER ==
[2021-07-16 12:46] LABS: HEMATOCRIT 47.4 % (42.0-52.0); MEAN CORPUSCULAR HGB CONC 33.8 g/dl (32.0-36.5); MEAN CORPUSCULAR VOLUME 85.9 fl (80.0-96.0); PLATELET COUNT, AUTOMATED 212 10^3/uL (150-450); RED BLOOD COUNT 5.52 10^6/uL (4.30-6.10); WHITE BLOOD COUNT 5.1 10^3/uL (4.0-10.0)
[2021-07-16 13:39] LABS: ALBUMIN 4.1 GM/DL (3.2-5.2); BILIRUBIN,DIRECT 0.1 MG/DL (0.0-0.2); BILIRUBIN,TOTAL 0.5 MG/DL (0.2-1.0); CALCIUM LEVEL 10.3 MG/DL (8.8-10.2); CHOLESTEROL RISK RATIO 5.113 (<5); CREATININE FOR GFR 1.8 MG/DL (0.70-1.30); GLOMERULAR FILTRATION RATE 40.4 (>49); PHOSPHORUS LEVEL 3.2 MG/DL (2.5-4.9); POTASSIUM SERUM 4.1 MEQ/L (3.5-5.1); TOTAL PROTEIN 6.5 GM/DL (6.4-8.2); URIC ACID 5.2 MG/DL (3.5-7.2)
[2021-07-16 13:47] LABS: PTH INTACT 65.7 PG/ML (18.5-88.0)
[2021-07-16 16:33] LABS: CREATININE, URINE 51.1 MG/DL; MALB URINE SIEMENS 72.9 MG/L; MAU/CREAT RATIO 142.6 MCG/MG (0.0-30.0)
[2021-07-16 21:22] LABS: HEMOGLOBIN A1c 7.7 %
== END ==
LOC: M ADAMS 09:39
PROVIDERS: ATTEND Internal Medicine Nephrology
DX: Z94.0 Kidney transplant status (principal); M10.9 Gout, unspecified; N25.81 Secondary hyperparathyroidism of renal origin; Z94.5 Skin transplant status; E11.22 Type 2 diabetes mellitus with diabetic chronic kidney disease; Z48.22 Encounter for aftercare following kidney transplant; E78.2 Mixed hyperlipidemia

== ENCOUNTER → 2021-12-17 | Outpatient (REF) | payer OTHER | LOC: M LAB REF 16:55 | PROVIDERS: ATTEND Internal Medicine Nephrology | DX: Z94.0 Kidney transplant status (principal) ==

== ENCOUNTER → 2022-04-27 | Outpatient (REF) | payer OTHER ==
[2022-04-27 13:01] LABS: BASO # 0.1 10^3/uL (0.0-0.2); BASO % 1.4 % (0.0-1.0); EOS # 0.1 10^3/uL (0.0-0.5); EOS % 2.1 % (0.0-3.0); HEMATOCRIT 44.8 % (42.0-52.0); HEMOGLOBIN 15.2 g/dl (13.5-17.5); LYMPH # 0.8 10^3/uL (1.5-5.0); LYMPH % 17.2 % (24.0-44.0); MEAN CORPUSCULAR HEMOGLOBIN 29.4 pg (27.0-33.0); MEAN CORPUSCULAR HGB CONC 33.9 g/dl (32.0-36.5); MEAN CORPUSCULAR VOLUME 86.7 fl (80.0-96.0); MONO # 0.6 10^3/uL (0.0-0.8); MONO % 11.8 % (2.0-8.0); NEUTROPHILS # 3.2 10^3/uL (1.5-8.5); NEUTROPHILS % 66.3 % (36.0-66.0); PLATELET COUNT, AUTOMATED 172 10^3/uL (150-450); RED BLOOD COUNT 5.17 10^6/uL (4.30-6.10); WHITE BLOOD COUNT 4.8 10^3/uL (4.0-10.0)
[2022-04-27 13:35] LABS: HEMOGLOBIN A1c 6.9 % (4.0-6.0)
[2022-04-27 13:44] LABS: FREE T4 1.32 NG/DL (0.89-1.76); THYROID STIMULATING HORMONE 0.719 uIU/ML (0.55-4.78)
[2022-04-27 13:50] LABS: ALKALINE PHOSPHATASE 61 U/L (46-116); ALT/SGPT 16 U/L (7.0-40); AST/SGOT < 8 U/L (<34); BILIRUBIN,TOTAL 0.8 MG/DL (0.3-1.2); BLOOD UREA NITROGEN 39 MG/DL (9-23); CALCIUM LEVEL 9.9 MG/DL (8.3-10.6); CARBON DIOXIDE LEVEL 26 MMOL/L (20-31); CHLORIDE LEVEL 104 MMOL/L (98-107); CHOLESTEROL LEVEL 233 MG/DL (<200); CHOLESTEROL RISK RATIO 4.33 (<5); CREATININE FOR GFR 2.01 MG/DL (0.70-1.30); GLOMERULAR FILTRATION RATE 35.5 (>49); GLUCOSE, FASTING 126 MG/DL (74-106); HDL CHOLESTEROL 53.8 MG/DL (>40); NON-HDL-C 179 MG/DL; POTASSIUM SERUM 3.8 MMOL/L (3.5-5.1); SODIUM LEVEL 139 MMOL/L (136-145); TOTAL PROTEIN 6.3 G/DL (5.7-8.2); TRIGLYCERIDES LEVEL 438 MG/DL (<150)
== END ==
LOC: M LABDRWAD 12:31
PROVIDERS: ATTEND Nurse Practitioner Adult Health
DX: E11.22 Type 2 diabetes mellitus with diabetic chronic kidney disease (principal); E78.2 Mixed hyperlipidemia; I15.0 Renovascular hypertension; E55.9 Vitamin D deficiency, unspecified

== ENCOUNTER → 2022-05-07 | Outpatient (REF) | payer OTHER | LOC: M LAB REF 16:44 | PROVIDERS: ATTEND Internal Medicine Nephrology | DX: Z94.0 Kidney transplant status (principal) ==

== ENCOUNTER → 2022-08-24 | Outpatient (REF) | payer OTHER ==
[~2022-08-24] MED LIST changes: -LOSA100T45 PO; +LOSA100T46 PO
[2022-08-24 14:07] LABS: BILIRUBIN,TOTAL 0.8 MG/DL (0.3-1.2); CALCIUM LEVEL 9.7 MG/DL (8.3-10.6); CHOLESTEROL RISK RATIO 3.89 (<5); CREATININE FOR GFR 1.97 MG/DL (0.70-1.30); GLOMERULAR FILTRATION RATE 36.3 (>49); HDL CHOLESTEROL 49.6 MG/DL (>40); LDL CHOLESTEROL 77.8 MG/DL (<100); NON-HDL-C 143.4 MG/DL; POTASSIUM SERUM 4.2 MMOL/L (3.5-5.1); TOTAL PROTEIN 6.1 G/DL (5.7-8.2)
[2022-08-24 14:08] LABS: THYROID STIMULATING HORMONE 0.86 uIU/ML (0.55-4.78); TOTAL 25(OH) VITAMIN D 77.2 NG/ML (20.0-100.0)
[2022-08-24 14:09] LABS: FREE T4 1.28 NG/DL (0.89-1.76)
[2022-08-24 14:16] LABS: BASO # 0.1 10^3/uL (0.0-0.2); BASO % 0.9 % (0.0-1.0); EOS # 0.1 10^3/uL (0.0-0.5); EOS % 1.3 % (0.0-3.0); HEMATOCRIT 46.5 % (42.0-52.0); HEMOGLOBIN 15.3 g/dl (13.5-17.5); LYMPH # 0.5 10^3/uL (1.5-5.0); LYMPH % 9.9 % (24.0-44.0); MEAN CORPUSCULAR HEMOGLOBIN 28.8 pg (27.0-33.0); MEAN CORPUSCULAR HGB CONC 32.9 g/dl (32.0-36.5); MEAN CORPUSCULAR VOLUME 87.6 fl (80.0-96.0); MONO # 0.4 10^3/uL (0.0-0.8); MONO % 7.9 % (2.0-8.0); NEUTROPHILS # 4.3 10^3/uL (1.5-8.5); NEUTROPHILS % 79.1 % (36.0-66.0); PLATELET COUNT, AUTOMATED 171 10^3/uL (150-450); RED BLOOD COUNT 5.31 10^6/uL (4.30-6.10); WHITE BLOOD COUNT 5.5 10^3/uL (4.0-10.0)
[2022-08-24 14:24] LABS: HEMOGLOBIN A1c 7.1 % (4.0-6.0)
[2022-08-24 14:32] LABS: CREATININE, URINE 19.4 MG/DL
[2022-08-24 14:33] LABS: MAU/CREAT RATIO 41.2 MCG/MG (0.0-30.0)
[2022-08-26 23:07] LABS: PSA TOTAL 0.6 ng/mL (0.0-4.0)
== END ==
LOC: M LABDRWAD 13:05
PROVIDERS: ATTEND Family Medicine
DX: E11.22 Type 2 diabetes mellitus with diabetic chronic kidney disease (principal); E78.2 Mixed hyperlipidemia; E55.9 Vitamin D deficiency, unspecified; I15.0 Renovascular hypertension; R35.0 Frequency of micturition

== ENCOUNTER → 2022-09-10 | Outpatient (REF) | payer OTHER | LOC: M LAB REF 17:33 | PROVIDERS: ATTEND Internal Medicine Nephrology | DX: Z94.0 Kidney transplant status (principal) ==

== ENCOUNTER → 2023-06-07 | Outpatient (CLI) | payer OTHER ==
[~2023-06-07] MED LIST changes: +GASTROGRAFIN SOLUTION 30ML As Ordered ONE
[2023-06-07 15:08] LABS: BASO # 0.1 10^3/uL (0.0-0.2); BASO % 0.7 % (0.0-1.0); EOS % 0.6 % (0.0-3.0); HEMATOCRIT 46.7 % (42.0-52.0); HEMOGLOBIN 15.8 g/dl (13.5-17.5); LYMPH # 0.6 10^3/uL (1.5-5.0); LYMPH % 8.6 % (24.0-44.0); MEAN CORPUSCULAR HEMOGLOBIN 28.1 pg (27.0-33.0); MEAN CORPUSCULAR HGB CONC 33.8 g/dl (32.0-36.5); MEAN CORPUSCULAR VOLUME 82.9 fl (80.0-96.0); MONO # 0.5 10^3/uL (0.0-0.8); NEUTROPHILS # 5.7 10^3/uL (1.5-8.5); NEUTROPHILS % 81.5 % (36.0-66.0); PLATELET COUNT, AUTOMATED 204 10^3/uL (150-450); RED BLOOD COUNT 5.63 10^6/uL (4.30-6.10)
[2023-06-07 15:25] LABS: HEMOGLOBIN A1c 7.3 % (4.0-6.0)
[2023-06-07 15:39] LABS: C REACTIVE PROTEIN QUANTITATIV < 0.40 MG/DL (<1.0)
[2023-06-07 15:40] LABS: ALBUMIN 4.2 G/DL (3.2-5.2); ALKALINE PHOSPHATASE 59 U/L (46-116); ALT/SGPT 16 U/L (7.0-40); AST/SGOT 13 U/L (<34); BILIRUBIN,TOTAL 0.8 MG/DL (0.3-1.2); BLOOD UREA NITROGEN 44 MG/DL (9-23); CALCIUM LEVEL 9.4 MG/DL (8.3-10.6); CARBON DIOXIDE LEVEL 27 MMOL/L (20-31); CHLORIDE LEVEL 100 MMOL/L (98-107); CREATININE FOR GFR 2.03 MG/DL (0.70-1.30); GLOMERULAR FILTRATION RATE 34.9 (>49); GLUCOSE, FASTING 156 MG/DL (74-106); POTASSIUM SERUM 4.6 MMOL/L (3.5-5.1); SODIUM LEVEL 135 MMOL/L (136-145); TOTAL PROTEIN 6.6 G/DL (5.7-8.2)
[2023-06-07 20:31] LABS: ERYTHROCYTE SEDIMENTATION RATE 5 mm/hr (0-20)
== END ==
LOC: M LAB 14:23 → M RAD 14:23
PROVIDERS: ATTEND Nurse Practitioner Adult Health
DX: R10.32 Left lower quadrant pain (principal)

== ENCOUNTER → 2023-07-12 | Outpatient (REF) | payer OTHER ==
[~2023-07-12] MED LIST changes: -GASTROGRAFIN SOLUTION 30ML As Ordered ONE; +METO200T15 PO; -METO200T28 PO
== END ==
LOC: M LAB REF 17:22
PROVIDERS: ATTEND Internal Medicine Nephrology
DX: Z94.0 Kidney transplant status (principal)

== ENCOUNTER → 2023-09-01 | Outpatient (CLI) | payer OTHER | LOC: M RAD 15:15 | PROVIDERS: ATTEND Nurse Practitioner Adult Health | DX: R07.81 Pleurodynia (principal) ==

== ENCOUNTER → 2023-09-27 | Outpatient (CLI) | payer OTHER ==
[~2023-09-27] MED LIST changes: +ALFU10TA23 PO; +CIDA500T2 PO; +ERGO500029 PO; +KPHOS50TA PO; +MYCO1TAB PO; +OMEP-173 PO; +POTA10CA70 PO; +TORS20TA2 PO
[2023-09-27 15:27] LABS: CALCIUM LEVEL 9.8 MG/DL (8.3-10.6); CREATININE FOR GFR 1.85 MG/DL (0.70-1.30); GLOMERULAR FILTRATION RATE 38.9 (>49); POTASSIUM SERUM 3.9 MMOL/L (3.5-5.1)
== END ==
LOC: M PLALAB 12:48
PROVIDERS: ATTEND Nurse Practitioner Adult Health
DX: E11.22 Type 2 diabetes mellitus with diabetic chronic kidney disease (principal)

== ENCOUNTER 2023-09-29 07:21 | Day surgery (SDC) | payer OTHER ==
[~2023-09-29] VITALS: Ht 170.2 cm; Wt 83.5 kg
[~2023-09-29 07:21] MED LIST changes: +NS 1,000 ML IV SCH
[2023-09-29] MEDS ORDERED: propofoL 200 MG/20 ML VIAL As Ordered ONE (08:35)
[2023-09-29 09:01] VITALS: TEMP 97.1
[2023-09-29 09:24] VITALS: BP 135/76; O2SAT 98
== END 2023-09-29 09:30 | disposition home or self-care (01) ==
LOC: M OPP 07:21
PROVIDERS: ATTEND Surgery
DX: Z12.11 Encounter for screening for malignant neoplasm of colon (principal); D12.6 Benign neoplasm of colon, unspecified; K64.9 Unspecified hemorrhoids; I10 Essential (primary) hypertension; E11.9 Type 2 diabetes mellitus without complications; Z79.02 Long term (current) use of antithrombotics/antiplatelets; Z79.52 Long term (current) use of systemic steroids; Z79.84 Long term (current) use of oral hypoglycemic drugs; Z79.899 Other long term (current) drug therapy

== ENCOUNTER → 2023-11-04 | Outpatient (REF) | payer OTHER ==
[~2023-11-04] MED LIST changes: -NS 1,000 ML IV SCH
[2023-11-04 19:07] LABS: BILIRUBIN,DIRECT 0.2 MG/DL (<0.4); BILIRUBIN,TOTAL 0.6 MG/DL (0.3-1.2); TOTAL PROTEIN 6.3 G/DL (5.7-8.2)
== END ==
LOC: M LAB REF 17:12
PROVIDERS: ATTEND Internal Medicine Nephrology
DX: R94.5 Abnormal results of liver function studies (principal); Z94.0 Kidney transplant status

== ENCOUNTER → 2024-12-13 | Outpatient (REF) | payer OTHER ==
[~2024-12-13] MED LIST changes: +GLIP2.5T46 PO; -GLIP2.5T6 PO
== END ==
LOC: M LAB REF 17:22
PROVIDERS: ATTEND Internal Medicine Nephrology
DX: Z94.0 Kidney transplant status (principal)